=== PATIENT | male | born 1985 | race Caucasian/White ===

== ENCOUNTER 2022-08-10 17:30 | Emergency (ER) | payer MEDICAID ==
[~2022-08-10] VITALS: Ht 165.1 cm; Wt 70.3 kg
[2022-08-10] MEDS ORDERED: CEPH500C2 PO (18:12)
[2022-08-10] MEDS ORDERED: CEPHALEXIN MONOHYDRATE 500 MG CAPSULE PO ONE ×2 (18:15→18:30)
--- NOTE | 2022-08-10 18:15 | NUR ---
KEFLEX PO GIVEN INDICATED, ASHLEY WELL
--- NOTE | 2022-08-10 18:18 | NUR ---
Kiki campbell in [facility] - 08/10/22 at 1819 by ROEL Patient discharged to home in stable condition. Written and verbal after care instructions given. Patient verbalizes understanding of instruction.
--- NOTE | 2022-08-10 18:19 | NUR ---
Patient discharged to home in stable condition. Written and verbal after care instructions given. Patient verbalizes understanding of instruction.
[2022-08-10 18:29] VITALS: BP 135/73
== END 2022-08-10 18:30 | disposition home or self-care (01) ==
LOC: ER 17:36
DX: L03.114 Cellulitis of left upper limb (principal)